=== PATIENT | female | born 1960 | race Caucasian/White ===

== ENCOUNTER 2019-04-21 06:52 | Emergency (ER) | payer SELFPAY ==
[~2019-04-21] VITALS: Ht 165.1 cm; Wt 59.0 kg
--- NOTE | 2019-04-21 07:17 | ED Back Pain ---
General Chief Complaint: Back Problems Stated Complaint: PAIN IN RIGHT SIDE AND BACK Source of Information: Patient Exam Limitations: No Limitations History of Present Illness Date Seen by Provider: Apr 21, 2019 Time Seen by Provider: 07:10 Initial Comments Patient presents to ER by private conveyance with her and chief compla int that last night she started having some dull achy pain in her right upper back that she never had before. This morning however it was very sharp and made her catch her breath she couldn't take deep breaths and radiated from her right thoracic rib cage around to her anterior axilla. She does not have any burning itching or rash area no fevers chills cough or shortness of breath but she says it hurts take a deep breath in order touch. No history of kidney stones. She has no burning urination or hematuria. No previous history of injury or significant back pain. She's been off of her blood pressure medicine since she moved down here for the past month lisinopril and amlodipine. She is on establish care at primary care doctor yet. She is to follow at research in [place]. She has a history of broken heart syndrome. She says usually she will have pains in her left chest and do not feel like this. In the past she's had this pain in her left chest worked up and they were associated with anxiety. The patient notes multiple tick bites the last week and would like a tick panel. Allergies and Home Medications Allergies Coded Allergies: Penicillins (Verified Adverse Reaction, Unknown, nausea, 04/21/19) Patient Home Medication List Home Medication List Reviewed: Yes Review of Systems Constitutional: No chills, No diaphoresis, No fever EENTM: No ear discharge, No ear pain Respiratory: No cough, No short of breath Cardiovascular: No chest pain, No edema, No palpitations Gastrointestinal: No abdominal pain, No constipation, No diarrhea Genitourinary: No discharge, No dysuria, No hematuria : No Musculoskeletal: back pain; No joint pain Skin: No pruritus, No rash Psychiatric/Neurological: Denies Headache, Denies Numbness Past Aahpwlf-Pjnaot-Dnyene Hx Patient Social History Alcohol Use: Denies Use Recreational Drug Use: No Smoking Status: Current Everyday Smoker Type Used: Cigarettes (1 ppd) Recent Foreign Travel: No Contact w/Someone Who Travel: No Physical Exam Vital Signs Vital Signs - First Documented 04/21/19 07:05 Temp 97.8 Pulse 58 Resp 18 B/P (MAP) 158/82 (107) Pulse Ox 98 O2 Delivery Room Air Capillary Refill : Height, Weight, BMI Height: '" Weight: lbs. oz. kg; BMI Method: General Appearance: WD/WN, Moderate Distress HEENT: PERRL/EOMI, Pharynx Normal, Moist Mucous Membranes Neck: Full Range of Motion, Normal Inspection, Non Tender, Supple Cardiovascular: Regular Rate, Rhythm, No Edema, Normal Peripheral Pulses Respiratory: No Chest Non Tender; Lungs Clear, Normal Breath Sounds, No Accessory Muscle Use, No Respiratory Distress, Other (shallow breathing) Gastrointestinal: Normal Bowel Sounds, Non Tender, Soft Back: Normal Inspection, Vertebral Tenderness (right-sided paraspinous thoracic radiating around along the ribs to the midclavicular bottom liner to palpation. Approximately T8-10.) Extremity: Normal Capillary Refill, Normal Inspection, No Pedal Edema Neurologic/Psychiatric: Alert, Oriented x3 Skin: Normal Color, Warm/Dry Progress/Results/Core Measures Results/Orders Lab Results Laboratory Tests Test 04/21/19 07:05 04/21/19 07:20 Range/Units Urine Color YELLOW Urine Clarity CLEAR Urine pH 8 5-9 Urine Specific [place] 1.030 H 1.016-1.022 Urine Protein NEGATIVE NEGATIVE Urine Glucose (UA) NEGATIVE NEGATIVE Urine Ketones NEGATIVE NEGATIVE Urine Nitrite NEGATIVE NEGATIVE Urine Bilirubin NEGATIVE NEGATIVE Urine Urobilinogen NORMAL NORMAL MG/DL Urine Leukocyte Esterase 1+ H NEGATIVE Urine RBC (Auto) 2+ H NEGATIVE Urine RBC 2-5 H /HPF Urine WBC 0-2 /HPF Urine Squamous Epithelial Cells 2-5 /HPF Urine Crystals NONE /LPF Urine Bacteria TRACE /HPF Urine Casts NONE /LPF Urine Mucus NEGATIVE /LPF Urine Culture Indicated YES White Blood Count 9.0 4.3-11.0 10^3/uL Red Blood Count 4.56 4.35-5.85 10^6/uL Hemoglobin 14.8 11.5-16.0 G/DL Hematocrit 44 35-52 % Mean Corpuscular Volume 95 80-99 FL Mean Corpuscular Hemoglobin 33 25-34 PG Mean Corpuscular Hemoglobin Concent 34 32-36 G/DL Red Cell Distribution Width 13.1 10.0-14.5 % Platelet Count 236 130-400 10^3/uL Mean Platelet Volume 10.5 H 7.4-10.4 FL Neutrophils (%) (Auto) 67 42-75 % Lymphocytes (%) (Auto) 22 12-44 % Monocytes (%) (Auto) 7 0-12 % Eosinophils (%) (Auto) 5 0-10 % Basophils (%) (Auto) 0 0-10 % Neutrophils # (Auto) 6.0 1.8-7.8 X 10^3 Lymphocytes # (Auto) 2.0 1.0-4.0 X 10^3 Monocytes # (Auto) 0.6 0.0-1.0 X 10^3 Eosinophils # (Auto) 0.4 H 0.0-0.3 10^3/uL Basophils # (Auto) 0.0 0.0-0.1 10^3/uL Sodium Level 139 135-145 MMOL/L Potassium Level 4.0 3.6-5.0 MMOL/L Chloride Level 107 98-107 MMOL/L Carbon Dioxide Level 22 21-32 MMOL/L Anion Gap 10 5-14 MMOL/L Blood Urea Nitrogen 14 7-18 MG/DL Creatinine 0.75 0.60-1.30 MG/DL Estimat Glomerular Filtration Rate > 60 BUN/Creatinine Ratio 19 Glucose Level 97 70-105 MG/DL Calcium Level 9.4 8.5-10.1 MG/DL Corrected Calcium 9.2 8.5-10.1 MG/DL Total Bilirubin 0.3 0.1-1.0 MG/DL Aspartate Amino Transf (AST/SGOT) 20 5-34 U/L Alanine Aminotransferase (ALT/SGPT) 14 0-55 U/L Alkaline Phosphatase 60 40-136 U/L C-Reactive Protein High Sensitivity 0.64 H 0.00-0.50 MG/DL Total Protein 7.1 6.4-8.2 GM/DL Albumin 4.2 3.2-4.5 GM/DL My Orders Orders - CASIE CHAUDHRY Ua Culture If Indicated (04/21/19 06:59) Ketorolac Injection (Toradol Injection) (04/21/19 07:30) Chest Pa/Lat (2 View) (04/21/19 07:18) Cbc With Automated Diff (04/21/19 07:18) Comprehensive Metabolic Panel (04/21/19 07:18) Hs C Reactive Protein (04/21/19 07:18) Ed Iv/Invasive Line Start (04/21/19 07:18) Urine Culture (04/21/19 07:05) Ct Abd/Pelvis Wo(Kidney Stone) (04/21/19 07:35) Fentanyl Injection (Sublimaze Injection (04/21/19 07:45) Medications Given in ED Current Medications Medications Dose Ordered Sig/Miguel Route Start Time Stop Time Status Last Admin Dose Admin Fentanyl Citrate 50 mcg ONCE ONCE IVP 04/21/19 07:45 04/21/19 07:46 DC 04/21/19 07:40 50 MCG Ketorolac Tromethamine 30 mg ONCE ONCE IVP 04/21/19 07:30 04/21/19 07:31 DC 04/21/19 07:26 30 MG Vital Signs/I&O 04/21/19 07:05 Temp 97.8 Pulse 58 Resp 18 B/P (MAP) 158/82 (107) Pulse Ox 98 O2 Delivery Room Air Progress Progress Note : Time: 07:42 Progress Note Right back pain easily reproducible by direct palpation or deep inspiration. No rash but would be highly suspicious of shingles. We'll obtain some basic labs and urine. Urinalysis demonstrated microscopic hematuria so we'll obtain a noncontrast CT of the abdomen and pelvis to rule out kidney stones. Toradol did not help so we will give her 50 g of fentanyl. Plan to put her on acyclovir gabapentin if nothing else demonstrated by lab or imaging. Diagnostic Imaging Diagonstic Imaging: Xray (2v) Plain Films/CT/US/NM/MRI: chest Comments NAME: ENOC CASTELAN [facility] REC#: [id number] PT STATUS: REG ER : 1960 PHYSICIAN: CASIE CHAUDHRY MD ADMIT DATE: 04/21/19/ER Signed Date of Exam:04/21/19 CHEST PA/LAT (2 VIEW) INDICATION: back and chest pain COMPARISON: None. FINDINGS: Frontal and lateral views the chest demonstrate clear lungs bilaterally. The heart size is normal. There is no pneumothorax. Osseous structures are normal. IMPRESSION: No acute findings. Normal chest. Dictated by: Dictated on workstation # [id number] Dict: 04/21/19 0811 Trans: 04/21/19811 [facility] [id number] Interpreted by: UTE SALINAS Electronically signed by: UTE SALINAS 04/21/19811 Reviewed: Reviewed by Me Diagonstic Imaging: CT (noncontrast) Plain Films/CT/US/NM/MRI: abdomen, pelvis Reviewed: Reviewed by Me Departure Impression Primary Impression: Back pain Qualified Codes: M54.6 - Pain in thoracic spine Additional Impression: Shingles Qualified Codes: B02.9 - Zoster without complications Disposition: HOME, SELF-CARE Condition: Improved Departure-Patient Inst. Decision time for Depature: 08:30 Referrals: SEBASTIAN LARIOS (PCP) Primary Care Physician Patient Instructions: Shingles (DC) Add. Discharge Instructions: Capsaicin oil applied directly over the skin that is affected several times a day can be helpful. Tylenol 1000 g every 8 hours in addition to ibuprofen 800 mg every 8 hours as necessary for pain. Gabapentin 100 mg 3 times a day can help your alleviate the pain. Start taking the acyclovir 800 mg 3 times a day for the next week. If you still have significant breakthrough pain and cannot be functional then you can use the hydrocodone one tablet every 6 hours as needed. If you begin to have fevers chills nausea vomiting or other worrisome symptoms please return to the ER or your primary care doctor. We should have an answer back in 3-5 days on your tick panel. All discharge instructions reviewed with patient and/or family. Voiced understanding. Scripts Hydrocodone Bit/Acetaminophen (Hydrocodone/Acetaminophen 5/325mg Tablet) 1 Tab Tab 1 EACH PO Q4-6HR PRN for PAIN-MODERATE MDD 10, #14 TAB 0 Refills Prov: CASIE CHAUDHRY 04/21/19 Gabapentin (Gabapentin) 100 Mg Capsule 100 MG PO Q8H for Neuropathic pain for 7 Days, #21 CAP 0 Refills Prov: CASIE CHAUDHRY 04/21/19 Acyclovir (Acyclovir) 800 Mg Tablet 800 MG PO TID for 7 Days, #21 TAB 0 Refills Prov: CASIE CHAUDHRY 04/21/19 CASIE CHAUDHRY Apr 21, 2019 07:17
[2019-04-21 07:18] LABS: BILIRUBIN,URINE NEGATIVE (NEGATIVE); CLARITY,URINE CLEAR; COLOR,URINE YELLOW; GLUCOSE, URINE (UA) NEGATIVE (NEGATIVE); KETONES,URINE NEGATIVE (NEGATIVE); LEUKOCYTE ESTERASE ,URINE 1+ (NEGATIVE); NITRITE,URINE NEGATIVE (NEGATIVE); PH,URINE 8 (5-9); PROTEIN,URINE NEGATIVE (NEGATIVE); UROBILINOGEN,URINE NORMAL (NORMAL)
[2019-04-21 07:30] LABS: BACTERIA,URINE TRACE /HPF; WBC,URINE 0-2 /HPF
[2019-04-21] MEDS ORDERED: KETOROLAC 30 MG/ML VIAL IVP ONE (07:30)
[2019-04-21 07:31] LABS: BASOPHILS % (AUTO) 0 % (0-10); EOSINOPHILS # (AUTO) 0.4 10^3/uL (0.0-0.3); EOSINOPHILS % (AUTO) 5 % (0-10); HEMATOCRIT 44 % (35-52); HEMOGLOBIN 14.8 G/DL (11.5-16.0); LYMPHOCYTES % (AUTO) 22 % (12-44); MEAN CORPUSCULAR HEMOGLOBIN 33 PG (25-34); MEAN CORPUSCULAR HGB CONC 34 G/DL (32-36); MEAN CORPUSCULAR VOLUME 95 FL (80-99); MEAN PLATELET VOLUME 10.5 FL (7.4-10.4); MONOCYTES # (AUTO) 0.6 X 10^3 (0.0-1.0); MONOCYTES % (AUTO) 7 % (0-12); NEUTROPHILS % (AUTO) 67 % (42-75); PLATELET COUNT 236 10^3/uL (130-400); RED CELL DISTRIBUTION WIDTH 13.1 % (10.0-14.5)
[2019-04-21] MEDS ORDERED: fentaNYL INJECTION 100 MCG/2 ML AMP IVP ONE (07:45)
[2019-04-21 07:50] LABS: ALANINE AMINOTRANSFERASE 14 U/L (0-55); ALBUMIN 4.2 GM/DL (3.2-4.5); ALKALINE PHOSPHATASE 60 U/L (40-136); BILIRUBIN,TOTAL 0.3 MG/DL (0.1-1.0); BUN/CREATININE RATIO 19; CALCIUM 9.4 MG/DL (8.5-10.1); CARBON DIOXIDE 22 MMOL/L (21-32); CHLORIDE 107 MMOL/L (98-107); CREATININE SERUM 0.75 MG/DL (0.60-1.30); GFR ESTIMATED > 60; GLUCOSE 97 MG/DL (70-105); SODIUM 139 MMOL/L (135-145); TOTAL PROTEIN 7.1 GM/DL (6.4-8.2)
[2019-04-21] MEDS ORDERED: lisinopril (07:50)
--- NOTE | 2019-04-21 08:12 | Diagnostic Imaging Report ---
INDICATION: back and chest pain COMPARISON: None. FINDINGS: Frontal and lateral views the chest demonstrate clear lungs bilaterally. The heart size is normal. There is no pneumothorax. Osseous structures are normal. IMPRESSION: No acute findings. Normal chest. Dictated by: Dictated on workstation # [id number]
--- NOTE | 2019-04-21 08:21 | Diagnostic Imaging Report ---
PROCEDURE: CT urinary tract, rule out kidney stone. TECHNIQUE: Multiple contiguous axial images were obtained through the abdomen and pelvis without the use of intravenous contrast. Auto Exposure Controls were utilized during the CT exam to meet ALARA standards for radiation dose reduction. INDICATION: Abdominal pain. Back pain. COMPARISON: None. FINDINGS: Lung bases are clear. The liver, gallbladder, pancreas, spleen, adrenals, kidneys, collecting systems and bladder are negative. Negative appendix. Bilateral tubal ligation. No free intraperitoneal air or fluid. No lymphadenopathy. No evidence of bowel obstruction. Osseous structures are negative. IMPRESSION: No acute CT findings in the abdomen or pelvis on this noncontrast exam. Specifically, no renal stones. No hydronephrosis. Dictated by: Dictated on workstation # [id number]
[2019-04-21] MEDS ORDERED: GABA-486 PO (08:34)
[2019-04-21] MEDS ORDERED: ACHD5005 PO (08:34)
[2019-04-21] MEDS ORDERED: ACYC800T PO (08:34)
[2019-04-21 08:45] VITALS: BP 145/78
[2019-04-21] MEDS ORDERED: HYDROcodone/APAP 5 MG/325 MG (LORTAB) TAB PO ONE (08:45)
== END 2019-04-21 08:45 | disposition home or self-care (01) ==
LOC: EDUNIT# 06:52 → ER 06:56
DX: B02.9 Zoster without complications (principal); M54.6 Pain in thoracic spine; F17.210 Nicotine dependence, cigarettes, uncomplicated; Z88.0 Allergy status to penicillin
CPT/HCPCS: 36415; 71046; 74176; 80053; 81000; 85025; 86141; 86618; 86666; 86668; 86757; 87088